=== PATIENT | male | born 1965 | race Caucasian/White ===

== ENCOUNTER 2020-09-19 12:40 | Outpatient (CLI) | payer MEDICARE | END 2020-09-19 12:41 | disposition home or self-care (01) | LOC: TBSIIMAG 12:40 | PROVIDERS: ATTEND Family Medicine | DX: M48.061 Spinal stenosis, lumbar region without neurogenic claudication (principal); M47.816 Spondylosis without myelopathy or radiculopathy, lumbar region | CPT/HCPCS: 72148 ==